=== PATIENT | female | born 1985 | race Caucasian/White ===

== ENCOUNTER → 2016-07-23 | Outpatient (CLI) | payer OTHER ==
[2016-07-23 15:38] VITALS: BP 126/76
== END ==
LOC: MHUC 14:55
PROVIDERS: ATTEND Physician Assistant
DX: J09.X2 Influenza due to identified novel influenza A virus with other respiratory manifestations (principal)
CPT/HCPCS: 99213

== ENCOUNTER → 2016-10-10 | Outpatient (CLI) | payer OTHER ==
[~2016-10-10] MED LIST: NAPR220C11 PO; OSLT75C PO; OXYC1TAB87 PO; PREN1TAB39 PO
[2016-10-10 17:19] VITALS: BP 106/70
--- NOTE | 2016-10-10 17:19 | Urgent Care T Sheet Gen (E) ---
Intake General Temperature (Fahrenheit): 99.9 Pulse: 82 Blood Pressure Systolic: 106 Blood Pressure Diastolic: 70 Respirations: 16 SPO2: 97 Description of Symptoms 30 year old female presents with nausea, vomiting, and diarrhea. States she began having diarrhea on and then Wednesday night started vomiting. States everyone else in the house is sick with similar symptoms. States her emesis is yellow now but denies any blood. States she has pain in her low back which she attributes to sleeping on bathroom floor. States she could only sleep for short periods. Denies any burning, urgency or frequency with urination. Source: Patient Exam Limitations: No limitations History of Present Illness Onset & Duration: Days (2) Timing: Still present Severity: Moderate Modifying Factors: Movement (worsens sx) Associated Symptoms: Nausea/vomiting Recent Trauma: No Similar Sympotms Previously: Yes Prior Treatment: Other (Phenergan) Allergies: Coded Allergies: No Known Allergies (Verified Allergy, 06/24/12) Home Meds Active Scripts Oseltamivir Phosphate (Tamiflu)75 Mg [id number] Mg PO BID Infection #10 CAP Ref 0 Prov:TYRA CODY 07/23/16 Reported Medications Oxycodone HCl/Acetaminophen (Percocet 5mg/325mg)1 Each Tablet1 Tab PO Q6H PRN Pain 06/24/12 Naproxen Sodium (Aleve)220 Mg [id number] Mg PO BID PRN 06/24/12 Vits W-Ca,Fe,Fa(<1MG) ()1 Each Tablet1 Each PO DAILY 04/02/12 Respiratory Constitutional Symptoms: No syptoms reported See HPINo Chills, No Diaphoresis , No Fever, No Malaise, No Weakness, No Other EENTM: No symptoms reported See HPINo Eye pain, No Blurred vision, No Eye tearing, No Double Vision, No Ear pain, No Ear discharge, No Nose Pain, No Nose Congestion, No Throat pain, No Throat swelling, No Mouth Pain, No Mouth Swelling , No Other Respiratory: No symptoms reported See HPINo Cough, No Orthopnea, No Short of breath, No Stridor, No Wheezing, No Other Cardiovascular: No symptoms reported See HPINo Chest pain, No Edema, No Palpitations, No Syncope, No Other Gastrointestinal/Abdominal: Abdominal pain (generalized) Diarrhea Nausea Vomiting Genitourinary: No symptoms reported See HPINo Discharge present, No Dysuria, No Decreased output, No Frequency, No Hematuria, No Pain, No Other : No (Hysterectomy) Estimated Date of Delivery: 06-24-12 Musculoskeletal: Back pain (Bilateral low back pain) All Other Systems Reviewed Remaining Systems: All other systems reviewed with negative findings Past Fvgjaik-Ouiqgx-Qmeyas Hx Reproductive System : 3 Living Children: 2 HIV/AIDS: Negative Reproductive History: Hysterectomy Physical Exam Physical Exam General Appearance: WD/WN Mild distress Eyes, Ears, Nose, Throat Ex: PERRL/EOMI (tears present) Normal ENT inspection TMs normal Pharynx normal (Mucus membranes moist, saliva present on tongue) Neck Exam: Non tender Full range of motion Supple Normal inspection Respiratory Exam: Chest non-tender Lungs clear Normal breath sounds No respiratory distress No accessory muscles used Cardiovascular Exam: Regular rate, rhythm No edema No gallop No JVD No murmur GI/ Exam: No organomegaly Normal bowel soundsNo No distention, No Abnormal bowel sound, Tenderness (Generalized diffuse tenderness, negative Psoas, Obturator, Markles, and Gracia sign)No Guarding, No Rebound, No Hepatomegaly, No Splenomegaly, No Mass, No Bruit, No Catheter present Back Exam: Normal Inspection No CVA tenderness (States back pain is deep) No vertebral tenderness Skin Exam: Normal color Warm/dry/intact No rashes No embolic lesions Extremity Exam: Non-tender Normal capillary refill No pedal edema No calf tenderness Neurologic/Psychiatric Exam: Oriented times 4 Mood/affect nml Lymphatic Exam: No adenopathy Progress/Orders Lab Results Labs Results: UA Medications Administered Medications Adminstered: Phenergan IM Departure Urgent Care Impression Impression: Primary Impression: Gastroenteritis Departure Disposition: 01 HOME OR SELF-CARE Condition: Stable Referrals: SERGEI RAMOS MD (PCP) Additional Instructions: Pt was given Phenergan 25 mg IM in left ventrogluteal muscle. Adverse drug reactions were reviewed and pt verbalized understanding. UA was negative and results were reviewed with patient. Advised of use of oral replacement therapy and taking very small amounts at frequent intervals. Advised that is symptoms worsen, increased pain, fever >101, or any concerns she should go to Emergency Department. Advised of signs of dehydration. Offered RX for Zofran but pt declined states she has some from her last and they don't seem to be working. End of report . KRISTINA TURNER [employer]IDENT SERVICES SUPERVISOR Oct 10, 2016 17:19
== END ==
LOC: MHUC 09:15
PROVIDERS: ATTEND Nurse Practitioner Family
DX: K52.9 Noninfective gastroenteritis and colitis, unspecified (principal)